=== PATIENT | male | born 1985 | race Caucasian/White ===

== ENCOUNTER 2017-08-03 10:18 | Emergency (ER) | payer SELFPAY ==
[~2017-08-03] VITALS: Ht 190.5 cm; Wt 77.3 kg
[~2017-08-03 10:18] MED LIST: CLIN-80 PO
[2017-08-03] MEDS ORDERED: DOXY20TA3 PO (16:24)
[2017-08-03 16:32] VITALS: BP 147/83
== END 2017-08-03 16:33 | disposition home or self-care (01) ==
LOC: ER 10:19
DX: L08.9 Local infection of the skin and subcutaneous tissue, unspecified (principal); B95.8 Unspecified staphylococcus as the cause of diseases classified elsewhere; F17.210 Nicotine dependence, cigarettes, uncomplicated; F15.10 Other stimulant abuse, uncomplicated; Z88.8 Allergy status to other drugs, medicaments and biological substances; Z79.899 Other long term (current) drug therapy
CPT/HCPCS: 99283

== ENCOUNTER 2018-10-06 14:51 | Emergency (ER) | payer MEDICAID, OTHER ==
[~2018-10-06] VITALS: Ht 185.4 cm; Wt 81.8 kg
[~2018-10-06 14:51] MED LIST changes: -CLIN-80 PO; +CLIN-96 PO; +DOXY100T2 PO; +DOXY20TA3 PO
[2018-10-06] MEDS ORDERED: AMOX-422 PO (15:05)
[2018-10-06 15:33] VITALS: BP 140/88
== END 2018-10-06 15:34 | disposition home or self-care (01) ==
LOC: ER 14:52
DX: S50.811A Abrasion of right forearm, initial encounter (principal); J32.1 Chronic frontal sinusitis; F12.90 Cannabis use, unspecified, uncomplicated; Z79.899 Other long term (current) drug therapy; Z88.1 Allergy status to other antibiotic agents; W22.8XXA Striking against or struck by other objects, initial encounter; Y93.89 Activity, other specified; Y92.89 Other specified places as the place of occurrence of the external cause; Y99.9 Unspecified external cause status
CPT/HCPCS: 99283

== ENCOUNTER 2019-02-25 14:53 | Emergency (ER) | payer BC, MEDICAID, OTHER ==
[~2019-02-25] VITALS: Ht 190.5 cm; Wt 84.1 kg
[2019-02-25 15:00] VITALS: BP 116/85
[2019-02-25] MEDS ORDERED: DOXY100C43 PO (15:54)
== END 2019-02-25 16:03 | disposition home or self-care (01) ==
LOC: ER 14:53
DX: S00.81XA Abrasion of other part of head, initial encounter (principal); L03.211 Cellulitis of face; F10.99 Alcohol use, unspecified with unspecified alcohol-induced disorder; F12.90 Cannabis use, unspecified, uncomplicated; Z88.1 Allergy status to other antibiotic agents; Z79.899 Other long term (current) drug therapy; W18.39XA Other fall on same level, initial encounter; Y93.89 Activity, other specified; Y92.89 Other specified places as the place of occurrence of the external cause; Y99.8 Other external cause status; Y90.9 Presence of alcohol in blood, level not specified
CPT/HCPCS: 99283

== ENCOUNTER 2021-12-09 10:35 | Emergency (ER) | payer BC ==
[~2021-12-09] VITALS: Ht 188 cm; Wt 93.2 kg
[~2021-12-09 10:35] MED LIST changes: -CLIN-96 PO; +CLIN-97 PO
[2021-12-09 11:15] VITALS: BP 131/84
[2021-12-09] MEDS ORDERED: HYDROcodone/acetaminophen 10/325mg tab PO ONE (12:35)
--- NOTE | 2021-12-09 13:04 | NUR ---
PT TO CT
[2021-12-09] MEDS ORDERED: DOXYCYCLINE 100MG CAPSULE PO STA (14:10)
[2021-12-09] MEDS ORDERED: DOXY-1 PO (14:16)
== END 2021-12-09 14:45 | disposition home or self-care (01) ==
LOC: ER 10:36
DX: J18.9 Pneumonia, unspecified organism (principal); R05.9 Cough, unspecified; R07.2 Precordial pain; F17.200 Nicotine dependence, unspecified, uncomplicated; F12.90 Cannabis use, unspecified, uncomplicated; Z72.89 Other problems related to lifestyle; Z88.1 Allergy status to other antibiotic agents; Z79.2 Long term (current) use of antibiotics
CPT/HCPCS: 71250; 99284